=== PATIENT | female | born 1980 | race Caucasian/White ===

== ENCOUNTER 2017-02-08 07:33 | Emergency (ER) | payer OTHER ==
[2017-02-08 07:43] VITALS: BP 114/54; PULSE 70; RESP 20; TEMP 97.6
--- NOTE | 2017-02-08 08:09 | ED ---
Back Pain HPI - General Chief Complaint: Back Pain/Injury Stated Complaint: back, sides and leg pain Time Seen by Provider: 02/08/17 08:01 Source: patient, RN notes reviewed Limitations: no limitations - History of Present Illness Initial Comments: This a 37-year-old female presents emergency Department chief complaint low back pain. Patient is started yesterday worse today. She states it is worse with twisting bending, movement. Patient states better at rest but states it hurts to lay down or sit up. Patient states she has some over to her urine but denies any dysuria or hematuria. Denies any chance . Patient that she 's had a history of back pain took some ibuprofen with minimal relief of the pain. Patient denies any fever or chills. She denies any nausea, vomiting diarrhea constipation. Denies any saddle anesthesias or lower extremity paresthesias. Denies any bowel, bladder incontinence or retention. She states the pain does radiate into both her upper legs. - Related Data Home Medications Medication Instructions Recorded Confirmed Aspirin 325 mg PO DAILY 02/08/17 02/08/17 Ibuprofen [Motrin] 600 mg PO Q6HR PRN 02/08/17 02/08/17 Previous Rx's Medication Instructions Recorded Cyclobenzaprine [Flexeril] 5 mg PO TID PRN #15 tablet 02/08/17 HYDROcodone/IBUPROFEN 7.5-200 1 tab PO Q6HR PRN #14 tab 02/08/17 [Vicoprofen 7.5-200 mg] Allergies Allergy/AdvReac Type Severity Reaction Status Date / Time shellfish derived [Shrimp] Allergy Anaphylaxis Verified 02/08/17 08:04 acetaminophen [From Tylenol] AdvReac "LIVER Verified 02/08/17 08:04 FLARE UP" Review of Systems ROS Statement: Those systems with pertinent positive or pertinent negative responses have been documented in the HPI. ROS Other: All systems not noted in ROS Statement are negative. Past Medical History Past Medical History: No Reported History History of Any Multi-Drug Resistant Organisms: None Reported Past Surgical History: Cholecystectomy Past Psychological History: No Psychological Hx Reported Smoking Status: Former smoker Past Alcohol Use History: None Reported Past Drug Use History: None Reported General Exam Limitations: no limitations General appearance: alert, in no apparent distress Head exam: Present: atraumatic, normocephalic, normal inspection Respiratory exam: Present: normal lung sounds bilaterally. Absent: respiratory distress, wheezes, rales, rhonchi, stridor Cardiovascular Exam: Present: regular rate, normal rhythm, normal heart sounds. Absent: systolic murmur, diastolic murmur, rubs, gallop, clicks GI/Abdominal exam: Present: soft, normal bowel sounds. Absent: distended, tenderness, guarding, rebound, rigid Extremities exam: Present: other (Lower extremity strength equal bilaterally, neurovascular intact pedal pulses +2 bilaterally) Back exam: Present: normal inspection, full ROM (Mild discomfort), tenderness ( Moderate lumbar), paraspinal tenderness, other (Pain with straight leg raise). Absent: CVA tenderness (R), CVA tenderness (L), vertebral tenderness Neurological exam: Present: alert, oriented X3, CN II-XII intact, reflexes normal. Absent: motor sensory deficit Skin exam: Present: warm, dry, intact, normal color. Absent: rash Course Vital Signs 02/08/17 07:39 Temperature 97.6 F Pulse Rate 70 Respiratory 20 Rate Blood Pressure 114/54 O2 Sat by Pulse 99 Oximetry Medical Decision Making - Medical Decision Making 37-year-old female presented emergency department for back pain. This appears muscle skeletal nature and is worse with movement. Patient has had some weeding pain into her legs. Patient's urinalysis is clear. Patient will be discharged at this time. - Lab Data Lab Results 02/08/17 02/08/17 Range/Units 08:17 08:17 Urine Color Yellow Urine Appearance Clear (Clear) Urine pH 5.5 (5.0-8.0) Ur Specific [place] 1.024 (1.001-1.035) Urine Protein Negative (Negative) Urine Glucose (UA) Negative (Negative) Urine Ketones Negative (Negative) Urine Blood Negative (Negative) Urine Nitrite Negative (Negative) Urine Bilirubin Negative (Negative) Urine Urobilinogen <2.0 (<2.0) mg/dL Ur Leukocyte Esterase Negative (Negative) Urine HCG, Qual Not Detected (Not Detectd) Disposition Clinical Impression: Lumbar back pain, Lumbar radiculopathy, acute Disposition: HOME SELF-CARE Condition: Stable Instructions: Acute Low Back Pain (ED) Additional Instructions: Please return to the Emergency Department if symptoms worsen or any other concerns. Prescriptions: Cyclobenzaprine [Flexeril] 5 mg PO TID PRN #15 tablet PRN Reason: Muscle Spasm HYDROcodone/IBUPROFEN 7.5-200 [Vicoprofen 7.5-200 mg] 1 tab PO Q6HR PRN #14 tab PRN Reason: Pain Time of Disposition: 08:43
[2017-02-08 08:37] LABS: Appearance,Urine Clear (Clear); Bilirubin,Urine Negative (Negative); Glucose,Urine (UA) Negative (Negative); Ketones,Urine Negative (Negative); Leukocyte Esterase,Urine Negative (Negative); Nitrite,Urine Negative (Negative); PH, Urine 5.5 (5.0-8.0); Protein,Urine Negative (Negative); Specific Gravity,Urine 1.024 (1.001-1.035); UA Billing (MACRO vs. MICRO) CHEM; Urobilinogen,Urine <2.0 mg/dL (<2.0)
== END 2017-02-08 08:50 | disposition home or self-care (01) ==
LOC: EC 07:33
DX: M54.16 Radiculopathy, lumbar region (principal); Z87.891 Personal history of nicotine dependence; Z79.82 Long term (current) use of aspirin; Z88.6 Allergy status to analgesic agent; Z91.013 Allergy to seafood
CPT/HCPCS: 81003; 81025; 99283

== ENCOUNTER 2017-07-16 08:02 | Emergency (ER) | payer OTHER ==
[2017-07-16 08:17] VITALS: BP 112/56; PULSE 83; RESP 14; TEMP 97.9
[2017-07-16] MEDS ORDERED: ONDANSETRON ODT 4 MG TAB PO STA (08:26)
--- NOTE | 2017-07-16 08:31 | ED ---
General Adult HPI - General Chief complaint: Allergic Reaction Stated complaint: ALLERGIC REACTION Time Seen by Provider: 07/16/17 08:22 Source: patient, RN notes reviewed Mode of arrival: ambulatory Limitations: no limitations - History of Present Illness Initial comments: 37-year-old female who presents emergency room today with a chief complaint of possible ALLERGIC reaction. She does admit that she's had cough congestion over the last week. She states she has been taking some [id number] Robitussin medication did not realize that there was Tylenol in it. She states that today she was having some nausea vomiting believes is treated with Tylenol. She denies any significant abdominal pain but does admit to some discomfort at times in the upper abdomen. Patient admits to cough congestion positive sputum production as been clear and white in color. She denies any other complaints or associated symptoms at this time. Patient denies any recent fever, chills, shortness of breath, chest pain, back pain, numbness or tingling , dysuria or hematuria, constipation or diarrhea, headaches or visual changes, or any other complaints. - Related Data Home Medications Medication Instructions Recorded Confirmed Varenicline Tartrate [Chantix] 1 tab PO BID 07/16/17 07/16/17 Previous Rx's Medication Instructions Recorded Azithromycin [Zithromax Z-pack] 0 mg PO DIRECTED #6 tab 07/16/17 Ondansetron Odt [Zofran ODT] 4 mg PO Q8HR PRN #20 tab 07/16/17 Allergies Allergy/AdvReac Type Severity Reaction Status Date / Time shellfish derived [Shrimp] Allergy Anaphylaxis Verified 07/16/17 08:30 acetaminophen [From Tylenol] AdvReac "LIVER Verified 07/16/17 08:30 FLARE UP" Review of Systems ROS Statement: Those systems with pertinent positive or pertinent negative responses have been documented in the HPI. ROS Other: All systems not noted in ROS Statement are negative. Past Medical History Past Medical History: No Reported History History of Any Multi-Drug Resistant Organisms: None Reported Past Surgical History: Cholecystectomy Past Psychological History: No Psychological Hx Reported Smoking Status: Former smoker Past Alcohol Use History: None Reported Past Drug Use History: None Reported General Exam - General Exam Comments Initial Comments: General: The patient is awake and alert, in no distress, and does not appear acutely ill. Eye: Pupils are equal, round and reactive to light, extra-ocular movements are intact. No nystagmus. There is normal conjunctiva bilaterally. No signs of icterus. Ears, nose, mouth and throat: There are moist mucous membranes and no oral lesions. Neck: The neck is supple, there is no tenderness or JVD. Cardiovascular: There is a regular rate and rhythm. No murmur, rub or gallop is appreciated. Respiratory: Lungs are clear to auscultation, respirations are non-labored, breath sounds are equal. No wheezes, stridor, rales, or rhonchi. Gastrointestinal: Soft, non-distended, non-tender abdomen without masses or organomegaly noted. There is no rebound or guarding present. No CVA tenderness. Bowel sounds are unremarkable. Musculoskeletal: Normal ROM, no tenderness. Strength 5/5. Sensation intact. Pulses equal bilaterally 2+. Neurological: A&O x 3. CN II-XII intact, There are no obvious motor or sensory deficits. Coordination appears grossly intact. Speech is normal. Skin: Skin is warm and dry and no rashes or lesions are noted. Psychiatric: Cooperative, appropriate mood & affect, normal judgment. Limitations: no limitations Course Vital Signs 07/16/17 08:13 Temperature 97.9 F Pulse Rate 83 Respiratory 14 Rate Blood Pressure 112/56 O2 Sat by Pulse 100 Oximetry Medical Decision Making - Medical Decision Making X-ray reviewed and shows no evidence of pneumonia. Does show some bronchial cuffing. Patient has been having cough congestion over the last 2 weeks was on a steroid and given inhaler by the family doctor week ill with little improvement. Patient will be given a Z-Can for symptoms. Continued on nausea medication and Zofran for her symptoms advised faulted family doctor over the next 2 days. Patient states understanding and is in agreement. Disposition Clinical Impression: Acute bronchitis, Nausea & vomiting Disposition: HOME SELF-CARE Condition: Good Instructions: Acute Bronchitis (ED) Additional Instructions: Please use medication as discussed. Please follow-up with family doctor in the next 2 days of symptoms have not improved. Please return to emergency room if the symptoms increase or worsen or for any other concerns. Prescriptions: Azithromycin [Zithromax Z-pack] 0 mg PO DIRECTED #6 tab Ondansetron Odt [Zofran ODT] 4 mg PO Q8HR PRN #20 tab PRN Reason: Nausea Referrals: Juan Antonio Quezada MD [Primary Care Provider] - 1-2 days Time of Disposition: 09:04
--- NOTE | 2017-07-16 08:56 | XR ---
EXAMINATION TYPE: XR chest 2V DATE OF EXAM: 07/16/2017 COMPARISON: None HISTORY: 37-year-old female with cough for one and half weeks TECHNIQUE: PA and lateral views FINDINGS: The cardiomediastinal silhouette, aorta, and pulmonary vasculature are within normal limits. Very mil d peribronchial cuffing. Otherwise, lungs and pleural spaces are clear. IMPRESSION: Some peribronchial cuffing could reflect bronchitis or chronic asthma. Otherwise, no acute process se en.
== END 2017-07-16 09:05 | disposition home or self-care (01) ==
LOC: EC 08:02
DX: J20.9 Acute bronchitis, unspecified (principal); R11.2 Nausea with vomiting, unspecified; Z90.49 Acquired absence of other specified parts of digestive tract; Z87.891 Personal history of nicotine dependence; Z88.6 Allergy status to analgesic agent; Z91.013 Allergy to seafood; Z79.899 Other long term (current) drug therapy
CPT/HCPCS: 71020; 99283

== ENCOUNTER → 2019-09-01 | Outpatient (CLI) | payer OTHER ==
--- NOTE | 2019-09-01 08:39 | MM ---
Reason for exam: screening (asymptomatic). Baseline mammogram. History: Family history of breast cancer in maternal cousin at age 40 and breast cancer in paternal cousin at age 40. Physical Findings: Nurse did not find any significant physical abnormalities on exam. MG 3D Screening Mammo W/Cad Bilateral CC and MLO view(s) were taken. There are scattered fibroglandular densities. Finding: There are typically benign skin calcifications in the left breast. These results were verbally communicated with the patient and result sheet given to the patient on 09/01/19. ASSESSMENT: Benign, BI-RAD 2 RECOMMENDATION: Routine screening mammogram of both breasts at age 42.
== END | disposition home or self-care (01) ==
LOC: RADMAMWWP 07:05
PROVIDERS: ATTEND Obstetrics & Gynecology
DX: Z12.31 Encounter for screening mammogram for malignant neoplasm of breast (principal)
CPT/HCPCS: 77063; 77067